=== PATIENT | female | born 1995 | race Caucasian/White ===

== ENCOUNTER 2019-03-19 21:16 | Emergency (ER) | payer SELFPAY | END 2019-03-19 21:27 | disposition left against medical advice (07) | LOC: ER 21:16 | DX: Z53.21 Procedure and treatment not carried out due to patient leaving prior to being seen by health care provider (principal) ==

== ENCOUNTER → 2019-03-19 | Outpatient (CLI) | payer OTHER ==
[2019-03-19 18:26] LABS: CHLAM PCR NOT DETECTED (NOT DETECT); GON PCR NOT DETECTED (NOT DETECT)
== END ==
LOC: LAB 16:38
PROVIDERS: ATTEND Nurse Practitioner Acute Care
DX: R30.0 Dysuria (principal)
CPT/HCPCS: 87086; 87088; 87186; 87491; 87591